=== PATIENT | female | born 1985 ===

== ENCOUNTER → 2021-03-31 08:25 | Outpatient (CLI) | payer OTHER, SELFPAY ==
[2021-03-31 21:30] LABS: COVID19 - ORCAS (NP or Nasal) POSITIVE (Negative)
== END ==
PROVIDERS: Visit Provider Physician Assistant
DX: U07.1 COVID-19 (principal); Z20.822 Contact with and (suspected) exposure to COVID-19
CPT/HCPCS: U0003